=== PATIENT | female | born 1970 | race Caucasian/White ===

== ENCOUNTER 2019-08-06 16:30 | Outpatient (RCR) | payer OTHER, SELFPAY ==
--- NOTE | 2019-05-23 11:05 | PTOPEVAL ---
Thank you for referring this patient to [facility]. Please review, sign, date and return this plan of care [facility]. I agree with and certify that the following plan of care is medically necessary. Referring Physician Date Attending Provider: Syed Da Silva MD *PT Outpatient Evaluation Start: 05/22/19 12:30 Freq: 2-3x/week Status: Active Protocol: Document 05/22/19 12:30 [facility] (Rec: 05/23/19 09:50 [facility] [email or web address]) Therapy Assessment Status Assessment Status Assessment Status Evaluation Outpatient Past Medical History Neurological History Hx Neurological Disorders No Significant History Cardiovascular History Hx Cardiac Arrhythmia Yes: SVT arrhythmia Respiratory History Hx Respiratory Disorders No Significant History Gastrointestinal History Hx Gastrointestinal Disorders No Significant History Genitourinary History Hx Genitourinary Disorders No Significant History Musculoskeletal History Hx Other Musculoskeletal Disorders Yes: L shoulder injury ~5.5 years ago; PT saw for C5 numbness 4 years ago Hematological History Hx Hematological Disorders No Significant History Reproductive History Hx Hysterectomy Yes Pain History History of Any Previous or Ongoing No Significant History Instance of Pain Other History Hx Other Medical Conditions Yes: Vertigo that limited function Evaluation Information Problem Diagnosis L shoulder pain/numbness Onset ~2 months ago Cause No known cause Additional Evaluation Detail Pt noticed winging of the L scapula as well. Subjective Information Patient reports that her Query Text:As Reported By Patient/ shoulder, sternum, and scapula Family pop a fair amount and that it is loud enough to hear. Her neck is bothering her, but mostly just feels like tightness and tension. 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 Home
--- NOTE | 2019-06-21 07:42 | PTOPEVAL ---
Thank you for referring this patient to [facility]. Please review, sign, date and return this plan of care [facility]AYLIN. I agree with and certify that the following plan of care is medically necessary. Referring Physician Date Attending Provider: Syed Da Silva MD *PT Outpatient Reassessment Start: 05/22/19 12:30 Freq: 1-2x/week Status: Active Protocol: Document 06/19/19 17:30 [facility] (Rec: 06/21/19 07:38 [facility] [email or web address]) Pain Assessment Timing of Pain Assessment Timing of Pain Assessment Re-assessment Pain Scale Pain Scale Used Numeric (1 - 10) Self Report Pain Assessment Left Neck Reported Pain Level 1 Pain Description Numbness,Tingling Pain Radiation Left Shoulder Pain Frequency Intermittent Pain Aggravating Factors Prolonged Position Additional Pain Comments Neck is feeling so much better but the shoulder symptoms are intermittent Pain Score Pain Score 1: Self Report Cervical and Lumbar ROM Cervical ROM Cervical Flexion (0-60) 55 Query Text:Active in Degrees Cervical Extension (0-70) 60 Query Text:Active in Degrees Cervical Lateral Flexion Right (0-50) 40 Query Text:Passive in Degrees Cervical Lateral Flexion Left (0-50) 35 Query Text:Active in Degrees Cervical Rotation Right (0-90) 75 Query Text:Active in Degrees Cervical Rotation Left (0-90) 85 Query Text:Active in Degrees Cervical ROM 75% of Normal Cervical ROM Comments ROM has significantly improved . She has a consistent sidebend in the low cervical region that is/was resulting in compensatory motion. This has improved but is still present. Muscle Length Testing Muscle Length Testing Scalene Group Muscle Length (R) Mild Tightness,(L) Mild Query Text: Tightness,(L) Moderate Tightness Levaetor Scapulae Muscle Length (R) Mild Tightness,(L) Mild Tightness,(L) Moderate Tightness Sternocleidomastoid Muscle Length (L) Moderate Tightness Pectoralis Minor Muscle Length (L) Mild Tightness,(L) Moderate Tightness Posture Posture Standing Position Posture Evaluation View Posterior Head/C-Spine Posture Side Bent Left Scapula Posture (L) Protracted,(L) Winged Pelvis Posture Neutral Weight Distribution Balanced Additional Posture Comments
--- NOTE | 2019-08-12 14:49 | PCPTNOTE ---
Patient had to cancel visit last week on 08/06 due to illness; cancelling todays visit due to work obligations.
--- NOTE | 2020-06-01 10:12 | PCPTNOTE ---
Admitting Provider: Attending Provider: Syed Da Silva MD Patient:Mckenna White Date of :1970 Patient's physical therapy chart will be discharged at this time. The goals were partially met. She did not attend visits in the new V# chart therefore discharging this V# chart. Thank you for referring this patient to [facility]. Please review, sign, date and return this discharge summary KAYLIN. I have been updated about the patient's current status and I agree with discharge from the above service at this time. Referring Physician Date
== END 2019-08-06 23:59 | disposition home or self-care (01) ==
LOC: ANHPT 16:30
PROVIDERS: PCP Family Medicine; Visit Provider Orthopaedic Surgery
DX: M75.41 Impingement syndrome of right shoulder (principal)
CPT/HCPCS: 97110; 97140; 97161

== ENCOUNTER 2019-10-18 13:30 | Outpatient (RCR) | payer OTHER, SELFPAY | END 2019-11-19 11:29 | disposition home or self-care (01) | LOC: ANHPT 13:30 | PROVIDERS: PCP Family Medicine; Visit Provider Orthopaedic Surgery | DX: M25.519 Pain in unspecified shoulder (principal) | CPT/HCPCS: 97110; 97140 ==

== ENCOUNTER 2019-11-26 16:56 | Outpatient (CLI) | payer BC, SELFPAY ==
--- NOTE | ~2019-11-26 | MM_ITS ---
EXAMINATION: MM screening [facility] BI w dionne HISTORY: Screening mammogram TECHNIQUE: Craniocaudal and mediolateral oblique 3-D tomosynthesis images were obtained and synthetic 2-D images were generated. CAD analysis was submitted and interpreted. COMPARISON: 11/21/2018, 11/13/2017, 11/21/2016 bilateral digital screening mammogram examinations BREAST PARENCHYMAL COMPOSITION: The breasts are heterogeneously dense, which may obscure small masses . FINDINGS: There is stable fibroglandular asymmetry. There is no evidence of suspicious mass, calcific ation, or architectural distortion to suggest malignancy in either breast. There has been no suspicio us interval change. IMPRESSION: 1. No mammographic evidence of malignancy. 2. Recommend routine screening mammography in one year. BI-RADS Category 2: Benign finding(s). Reviewed, dictated and finalized at location A.
== END 2019-11-26 16:57 | disposition home or self-care (01) ==
LOC: ANHIMG 17:00
PROVIDERS: PCP Family Medicine; Visit Provider Obstetrics & Gynecology
DX: Z12.31 Encounter for screening mammogram for malignant neoplasm of breast (principal)
CPT/HCPCS: 77063; 77067

== ENCOUNTER 2021-03-01 07:33 | Outpatient (CLI) | payer BC, SELFPAY ==
--- NOTE | ~2021-03-01 | MM_ITS ---
EXAMINATION: MM screening [facility] BI w dionne HISTORY: Screening TECHNIQUE: Craniocaudal and mediolateral oblique 3-D tomosynthesis images were obtained and synthetic 2-D images were generated. CAD analysis was submitted and interpreted. COMPARISON: Comparison to multiple prior studies sequentially, with oldest reviewed study dated 01/2015. BREAST PARENCHYMAL COMPOSITION: The breasts are heterogeneously dense, which may obscure small masses . FINDINGS: There is no evidence of suspicious mass, calcification, or architectural distortion to sugg est malignancy in either breast. There has been no suspicious interval change. IMPRESSION: 1. No mammographic evidence of malignancy. 2. Recommend routine screening mammography in one year. BI-RADS Category 1: Negative Reviewed, dictated and finalized at location A.
== END 2021-03-01 07:34 | disposition home or self-care (01) ==
LOC: ANHIMG 07:35
PROVIDERS: PCP Family Medicine; Visit Provider Obstetrics & Gynecology
DX: Z12.31 Encounter for screening mammogram for malignant neoplasm of breast (principal)
CPT/HCPCS: 77063; 77067

== ENCOUNTER 2021-06-03 08:15 | Outpatient (CLI) | payer BC, SELFPAY ==
[2021-06-03 12:26] LABS: SARS-CoV-2 RNA PCR Negative (Negative)
== END 2021-06-03 08:16 | disposition home or self-care (01) ==
LOC: CHSLAB 08:17
PROVIDERS: PCP Family Medicine; Visit Provider Family Medicine
DX: Z20.822 Contact with and (suspected) exposure to COVID-19 (principal)
CPT/HCPCS: C9803; U0003; U0005

== ENCOUNTER 2021-06-10 09:52 | Outpatient (RCR) | payer BC, SELFPAY ==
[2021-06-10 15:26] VITALS: BP 138/84; PULSE 70; RESP 18; TEMP 36.6; O2SAT 100
[2021-06-10] MEDS: diphenhydrAMINE HCl CAP 25 MG CAPSULE PO (15:32)
[2021-06-10] MEDS: FAMOTIDINE 20 MG TABLET PO (15:32)
[2021-06-10] MEDS: ACETAMINOPHEN 325 MG TABLET 650 MG PO (15:32)
[2021-06-10 16:56] VITALS: BP 124/71; PULSE 57; O2SAT 100
== END 2021-06-10 17:00 ==
LOC: AMCINF 09:52
PROVIDERS: PCP Family Medicine; Visit Provider Internal Medicine Hematology & Oncology
DX: U07.1 COVID-19 (principal); I25.10 Atherosclerotic heart disease of native coronary artery without angina pectoris
CPT/HCPCS: A9270; M0247; Q0247

== ENCOUNTER 2021-12-02 08:02 | Outpatient (CLI) | payer BC, SELFPAY ==
--- NOTE | ~2021-12-02 | US_ITS ---
EXAMINATION: US thyroid DATE: 12/02/2021 08:25 INDICATION: endocrine disorder. TECHNIQUE: Multiple ultrasound images of the thyroid were obtained. COMPARISON: None. FINDINGS: The right thyroid lobe measures 4.7 x 2.1 x 1.6 cm. The left thyroid lobe measures 4.6 x 1.8 x 1.7 c m. Wider than tall 5 mm hypoechoic solid nodule with ill-defined margins and without echogenic foci (TI-RADS 4, moderately suspicious , FNA if >=1.5 cm, annual followup is >=1 cm). There is normal echo texture, echogenicity and vascular flow throughout the remainder of the thyroid gland. IMPRESSION: 1. 5 mm TI RADS 4 left thyroid nodule which remains below criteria for either biopsy or required foll ow-up. Reviewed, dictated and finalized at location A. IMPRESSION: 1. 5 mm TI RADS 4 left thyroid nodule which remains below criteria for either b iopsy or required follow-up.
== END 2021-12-02 08:03 | disposition home or self-care (01) ==
LOC: ANHIMG 08:04
PROVIDERS: PCP Family Medicine; Visit Provider Obstetrics & Gynecology
DX: Z86.39 Personal history of other endocrine, nutritional and metabolic disease (principal)
CPT/HCPCS: 76536

== ENCOUNTER → 2021-12-13 15:15 | Outpatient (REF) | payer BC, SELFPAY | LOC: ANHLAB 15:15 | PROVIDERS: PCP Family Medicine; Visit Provider Nurse Practitioner | DX: D49.2 Neoplasm of unspecified behavior of bone, soft tissue, and skin (principal) | CPT/HCPCS: 88305 ==

== ENCOUNTER → 2022-01-17 13:18 | Outpatient (REF) | payer BC, SELFPAY | LOC: ANHLAB 13:18 | PROVIDERS: PCP Family Medicine; Visit Provider Surgery Plastic and Reconstructive Surgery | DX: D49.2 Neoplasm of unspecified behavior of bone, soft tissue, and skin (principal) | CPT/HCPCS: 88305; 88313 ==

== ENCOUNTER 2022-04-13 07:57 | Outpatient (CLI) | payer BC, SELFPAY ==
--- NOTE | ~2022-04-13 | MM_ITS ---
EXAMINATION: MM screening [facility] BI w dionne HISTORY: Screening mammogram TECHNIQUE: Craniocaudal and mediolateral oblique 3-D tomosynthesis images were obtained and synthetic 2-D images were generated. CAD analysis was submitted and interpreted. COMPARISON: 03/01/2021, 11/26/2019, 11/21/2018 bilateral screening mammogram examinations BREAST PARENCHYMAL COMPOSITION: The breasts are heterogeneously dense, which may obscure small masses . FINDINGS: There is no evidence of suspicious mass, calcification, or architectural distortion to sugg est malignancy in either breast. There has been no suspicious interval change. IMPRESSION: 1. No mammographic evidence of malignancy. 2. Recommend routine screening mammography in one year. BI-RADS Category 1: Negative Reviewed, dictated and finalized at location A. 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
== END 2022-04-13 07:58 | disposition home or self-care (01) ==
LOC: ANHIMG 08:02
PROVIDERS: PCP Family Medicine; Visit Provider Obstetrics & Gynecology
DX: Z12.31 Encounter for screening mammogram for malignant neoplasm of breast (principal)
CPT/HCPCS: 77063; 77067

== ENCOUNTER 2023-04-14 07:56 | Outpatient (CLI) | payer BC, SELFPAY ==
--- NOTE | ~2023-04-14 | MM_ITS ---
EXAMINATION: MM screening [facility] BI w dionne HISTORY: Screening TECHNIQUE: Craniocaudal and mediolateral oblique 3-D tomosynthesis images were obtained and synthetic 2-D images were generated. CAD analysis was submitted and interpreted. COMPARISON: Comparison to multiple prior studies sequentially, with oldest reviewed study dated 02/2017. BREAST PARENCHYMAL COMPOSITION: The breasts are heterogeneously dense, which may obscure small masses FINDINGS: There is no evidence of suspicious mass, calcification, or architectural distortion to sugg est malignancy in either breast. There has been no suspicious interval change. IMPRESSION: 1. No mammographic evidence of malignancy. 2. Recommend routine screening mammography in one year. BI-RADS Category 1: Negative Reviewed, dictated and finalized at location A. [employer]
== END 2023-04-14 07:57 | disposition home or self-care (01) ==
LOC: ANHIMG 07:58
PROVIDERS: PCP Family Medicine; Visit Provider Obstetrics & Gynecology
DX: Z12.31 Encounter for screening mammogram for malignant neoplasm of breast (principal)
CPT/HCPCS: 77063; 77067

== ENCOUNTER 2023-07-03 02:07 | Day surgery (SDC) | payer BC, SELFPAY ==
[2023-06-09 12:10] VITALS: BMI 25.0
--- NOTE | 2023-06-30 09:31 | SUR.PREOP ---
Patient called regarding upcoming procedure. Pt updated on arrival date and time. All questions answered
[2023-07-03 06:12] VITALS: BP 129/85; PULSE 98; RESP 18; TEMP 36.5; O2SAT 100; BMI 24.6
[2023-07-03] MEDS: LACTATED RINGERS 1,000 ML 150 ML IV CONT (06:28)
--- NOTE | 2023-07-03 07:25 | PM.HPGS ---
History of Present Illness History of Present Illness Consent: Risks, benefits, and alternatives have been discussed and questions answered. Patient agrees to proceed with procedure. Chief complaint: neoplasm screening Narrative: Mckenna Cadet is a 52 year old female here for first screening colonoscopy Review of Systems Constitutional: Constitutional: Denies headache(s) and Denies weakness Eyes: Eyes: Denies blurry vision ENT: Reports Normal hearing present, Denies headache(s) and Denies neck pain Cardiovascular: Cardiovascular: Denies chest pain and Denies dyspnea Respiratory: Respiratory: Denies dyspnea Gastrointestinal: Gastrointestinal: Reports no additional gastrointestinal complaints Genitourinary: Genitourinary: Denies dysuria Musculoskeletal: Musculoskeletal: Denies neck pain Integumentary/Breasts: Skin/Breast: Denies dry skin Neurologic: Reports Normal hearing present, Denies headache(s) and Denies weakness Psychiatric: Psychiatric: Denies anxiety Endocrine: Endocrine: Denies change in body appearance Hematologic/Lymphatic: Hematologic/Lymphatic: Denies easy bleeding Allergic/Immunologic: Allergic/Immunologic: Denies urticaria PMFSH Past Medical History Medical History (Updated 02/01/23 @ 08:42 by Samuel Ahn MD) Hx of thyroid cyst Overweight Screening mammogram, encounter for Surgical History Surgical History (Updated 02/01/23 @ 08:00 by DEBORAH Sorto) History of robot-assisted laparoscopic hysterectomy (05/24/18) RATLH- fibroids History of tonsillectomy (~1985) [place] teeth removed Family History Family History Father Hypertension Other Acute myocardial infarction paternal uncle x 2 Pancreatic cancer paternal uncle Social History Social History (Updated 02/01/23 @ 08:01 by DEBORAH Sorto) Smoking status: Never smoker Second hand tobacco smoke exposure: No Alcohol intake: never Substance use: never Substance use type: does not use Lack of Transportation: No Lack of Food: Never True Current Housing: I Have Housing Concerned About Future Housing: No Difficulty Paying Gas/Electric Bills: No Difficulty Paying for Meds: No Currently Unemployed: No Education: Master's Degree or Higher Difficulty w/ Childcare or Family Care: No Additional living arrangements comments: Occupation/Education: occupation 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 Gender identity (if verbalized by the patient): Female Sexual Orientation (if Verbalized by the Patient): Straight or Heterosexual Meds Home Medications and Allergies Home Medications Medication Instructions Recorded Confirmed Type metoprolol succinate 25 mg 25 mg PO DAILY 06/10/21 07/03/23 History tablet,extended release 24 hr Allergies Allergy/AdvReac Type Severity Reaction Status Date / Time hydrocodone AdvReac Mild vomiting Verified 07/03/23 06:18 Vital Signs Vital Signs - 24 hr 07/03/23 06:12 Temperature 97.7 F Pulse Rate 98 Respiratory Rate 18 Blood Pressure 129/85 Pulse Oximetry 100 Oxygen Delivery Room Air Exam Const: General: comfortable and no acute distress HENMT: Face/Nose/Sinus: Normal nares present Eyes: General: appearance normal, both eyes and all related structures Neck: Neck: no JVD Resp: Auscultation: clear to auscultation bilaterally Cardio: Rate: regular rate Rhythm: regular rhythm GI: Inspection: non-distended GI Palp: Yes Soft to palpation Skin: General skin exam: normal color Neuro: General: gait normal Speech: normal speech Extrem: General: normal to inspection Psych: Mental Status: mental status grossly normal Assessment and Plan Assessment and plan (1) Colon cancer screening: Code(s): Z12.11 - Encounter for screening for malignant neoplasm of colon Status: Acute
--- NOTE | 2023-07-03 07:26 | WPDANESEPPF ---
Anes - Initial Pre Proc Eval Procedure: Operation Date: 07/03/23 07:30 Proposed Procedures p Screening Colonoscopy - Benson Gore MD Date/Time: 07/03/23 07:26 Surgeon: Benson Gore MD Pre Op Diagnosis: neoplasm screening Patient Data Age: 52 Gender: F Height: 1.65 m Weight: 67.2 kg Last Vital Signs Temp 97.7 F 07/03/23 06:12 Pulse 98 07/03/23 06:12 Resp 18 07/03/23 06:12 BP 129/85 07/03/23 06:12 Pulse Ox 100 07/03/23 06:12 O2 Del Method Room Air 07/03/23 06:12 Allergies Allergy/AdvReac Type Severity Reaction Status Date / Time hydrocodone AdvReac Mild vomiting Verified 07/03/23 06:18 Home Medications Medication Instructions Recorded Confirmed Type metoprolol succinate 25 mg 25 mg PO DAILY 06/10/21 07/03/23 History tablet,extended release 24 hr Patient hx anesthesia problems: none Family hx anesthesia problems: none Results Review: All pre-operative results and documents have been reviewed as part of the pre-operative evaluation. [facility] Past Medical History Medical History (Updated 02/01/23 @ 08:42 by Samuel Ahn MD) Hx of thyroid cyst Overweight Screening mammogram, encounter for Surgical History Surgical History (Updated 02/01/23 @ 08:00 by DEBORAH Sorto) History of robot-assisted laparoscopic hysterectomy (05/24/18) RATLH- fibroids History of tonsillectomy (~1985) [place] teeth removed Family History Family History Father Hypertension Other Acute myocardial infarction paternal uncle x 2 Pancreatic cancer paternal uncle Social History Social History (Updated 02/01/23 @ 08:01 by DEBORAH Sorto) Smoking status: Never smoker Second hand tobacco smoke exposure: No Alcohol intake: never Substance use: never Substance use type: does not use Lack of Transportation: No Lack of Food: Never True Current Housing: I Have Housing Concerned About Future Housing: No Difficulty Paying Gas/Electric Bills: No Difficulty Paying for Meds: No Currently Unemployed: No Education: Master's Degree or Higher Difficulty w/ Childcare or Family Care: No Additional living arrangements comments: Occupation/Education: occupation 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 Gender identity (if verbalized by the patient): Female Sexual Orientation (if Verbalized by the Patient): Straight or Heterosexual Anes - Eval Final PreProcedure Day of Procedure 07/03/23 07:26 Patient weight: normal Heart: regular rate and rhythm Lungs: clear to auscultation Airway: Mallampati scale class II Neurological: alert and oriented Last oral intake: >/= 8 hours ASA classification: II Emergent: no Anesthetic plan: proceed Anesthesia type and monitoring: general GIVS and standard monitoring Results Review: All pre-operative results and documents have been reviewed as part of the pre-operative evaluation. Informed Consent: The patient's anesthetic plan and its attendant risks and benefits were discussed with the patient/family/POA. Questions were solicited and answers provided to the satisfaction of the patient/family/POA.
[2023-07-03 07:43] VITALS: BP 119/59; PULSE 74; RESP 24; O2SAT 99
[2023-07-03 07:53] VITALS: BP 93/70; PULSE 74; RESP 17; O2SAT 99
[2023-07-03 08:03] VITALS: BP 107/69; PULSE 80; RESP 18; O2SAT 99
== END 2023-07-03 08:13 | disposition home or self-care (01) ==
PROVIDERS: PCP Family Medicine; Visit Provider Internal Medicine Gastroenterology
PROC: 0DJD8ZZ Inspection of Lower Intestinal Tract, Via Natural or Artificial Opening Endoscopic (ICD-10-PCS; CPT 45378; principal; 2023-07-03 07:30)
DX: Z12.11 Encounter for screening for malignant neoplasm of colon (principal); Z98.890 Other specified postprocedural states; Z82.49 Family history of ischemic heart disease and other diseases of the circulatory system; Z80.0 Family history of malignant neoplasm of digestive organs
CPT/HCPCS: 45378; J2704; J7120

== ENCOUNTER 2024-04-16 14:54 | Outpatient (CLI) | payer OTHER, SELFPAY ==
--- NOTE | ~2024-04-16 | MM_ITS ---
EXAMINATION: MM screening [facility] BI w dionne HISTORY: Screening mammogram TECHNIQUE: Craniocaudal and mediolateral oblique 3-D tomosynthesis images were obtained and synthetic 2-D images were generated. CAD analysis was submitted and interpreted. COMPARISON: 04/14/2023, 04/13/2022, 03/01/2021 BREAST PARENCHYMAL COMPOSITION:Not Dense. There are scattered areas of fibroglandular density. FINDINGS: No suspicious mass, calcification, or architectural distortion are identified in either natali ast to suggest malignancy. There has been no suspicious interval change. IMPRESSION: No mammographic evidence of malignancy. Recommend routine screening mammography in one year. BI-RADS Category 1: Negative Reviewed, dictated and finalized at location . 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
== END 2024-04-16 14:55 | disposition home or self-care (01) ==
LOC: CHSIMG 14:56
PROVIDERS: PCP Family Medicine; Visit Provider Obstetrics & Gynecology
DX: Z12.31 Encounter for screening mammogram for malignant neoplasm of breast (principal)
CPT/HCPCS: 77063; 77067

== ENCOUNTER 2024-12-11 07:01 | Outpatient (CLI) | payer OTHER, SELFPAY ==
--- OUTSIDE RECORDS SUMMARY | 2024-12-11 07:03 | XMS_ITS | Referral Summary ---
Author Organization [facility] Address [address] [place] [address] Care Team Providers Care International Marketing Intern Name Role Phone Ramon Deluna MD Primary Care Provider [phone] Allergies Active Allergy Reactions Criticality Noted Date Comments Hydrocodone Vomiting Reaction: vomitting, Medications multivitamin tablet tablet take 1 by Oral route once 0 0 04/05/2016 Active metoprolol XL (TOPROL-XL) 25 mg extended release tabletIndications :PVC (premature ventricular contraction) TAKE 1 TABLET(25 MG) BY MOUTH DAILY 90 tablet 2 09/16/2024 Active Active Problems Problem Noted Date Diagnosed Date Ventricular premature complexes 01/31/2017 Intramural leiomyoma of uterus 11/29/2016 Overview (11/29/2016): Stable. Cervical high risk HPV (human papillomavirus) te st positive 11/29/2016 Resolved Problems Problem Noted Date Diagnosed Date Resolved Date Inappropriate sinus tachycardia 03/29/2022 03/30/2023 Mitral valve prolapse 10/19/20132022 Overview (09/08/2016): Mitral valve prolapse Social History Tobacco Use Types Packs/Day Years Used Date Smoking Tobacco: Never Smokeless Tobacco: Never Tobacco Cessation:Counseling Given: Not Answered Alcohol Use Standard Drinks/Week Comments No 0 (1 standard drink = 0.6 oz pur e alcohol) Comments No Sex and Gender Information Value Date Recorded Sex Assigned at Not on file Legal Sex Female 2:13 AM [employer] Gender Identity Not on file Sexual Orientation Not on file Last Filed Vital Signs Vital Sign Reading Time Taken Comments Blood Pressure 112/66 05/13/2024 10: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 Pulse 77 05/13/2024 10: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 Temperature - - Respiratory Rate 12 01/31/2017 7:57 AM CDT Oxygen Saturation 98% 05/13/2024 10: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 Inhaled Oxygen Concentration - - Weight 68.9 kg (152 lb) 05/13/2024 10: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 Height 165.1 cm (5' 5) 05/13/2024 10: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 Body Mass Index 25.29 05/13/2024 10: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 Plan of Treatment Not on file Procedures Procedure Name Priority Date/Time Associated Diagnosis Comments MAMMOGRAPHY Schedule Routine, Read Routine (OP Routine) 11/21/2018 PAP IG, HPV-HR Routine 12/25/2017 3:45 PM CDT Well woman exam from Last 3 Months or Most Recently Relevant to Health Maintenance Results * MAMMOGRAPHY (11/21/2018) Anatomical Region Laterality Modality Breast Mammography Hermelindo Matthew MD [facility] [place]AM[place] PROCEDURES Final Result * (ABNORMAL) Pap IG, HPV-hr (12/25/2017 3:45 PM CDT) Clinical indication Comment(A) [facility] - 01 Comment: EPITHELIAL CELL ABNORMALITY. LOW-GRADE SQUAMOUS INTRAEPITHELIAL LESION (LGSIL); MILD DYSPLASIA IS PRESENT. Specimen adequacy: Comment [facility] - 01 Comment: Satisfactory for evaluation. Endocervical and/or squamous metaplastic cells (endocervical component) are present. Clinician provided ICD10 Comment [facility] 02 Comment:Z01.419 Performed by Comment [facility] 02 Comment:Teresita Guerrero, Cyto technologist (ASCP) Electronically signed by Comment [facility] - 01 Comment:Conor Wilkins, Pathologist . . [facility] - 01 Pathologist provided ICD10 Comment [facility] - 01 Comment:R87.612 Note: Comment [facility] 02 Comment: The Pap smear is a screening test designed to aid in the detection of premalignant and malignant conditions of the uterine cervix. It is not a diagnostic procedure and should not be used as the sole means of detecting cervical cancer. Both false-positive and false-negative reports do occur. Test methodology Comment [facility] 02 Comment: This liquid based ThinPrep(R) pap test was screened with the use of an image guided system. HPV, high-risk Positive(A ) Negative [facility] 03 Comment: This high-risk HPV test detects thirteen high-risk types (16/18/31/33/35/39/45/51/52/56/58/59/68) without differentiation. Endocervical/vagi nal 12/25/2017 3:45 PM CDT 12/26/2017 Narrative [facility] - 12/29/2017 12:23 PM CDT Performed at: - [facility] [id number] Planning Coordinator: Fatemeh Quigley MD, Phone: [phone] Performed at: - [facility] [id number] Planning Coordinator: Magalis Carrington MD, Phone: [phone] Performed at: 03 - [facility] [id number] Planning Coordinator: Magalis Carrington MD, Phone: [phone] Specimen Comment: No. of containers..01 ThinPrep Vial Hermelindo Matthew MD LAB PATHOLOGY ORDERABLES F inal [facility] - 01 [facility] 03 from Last 3 Months or Most Recently Relevant to Health Maintenance Insurance [facility] [id number] Care Teams International Marketing Intern Relationship Specialty Start Date End Date Ramon Deluna MD PCP - General 11/10/15
--- OUTSIDE RECORDS SUMMARY | 2024-12-11 07:04 | XMS_ITS | Clinical Summary ---
Author Organization [facility] Medical Office Building B Address [address] [place] [address] Care Team Providers Care Commercial Artist Name Role Phone Ramon Deluna MD Primary Care Provider [phone] Allergies Active Allergy Reactions Criticality Noted Date [...] prolapse 10/19/20132022 Overview (09/08/2016): Mitral valve prolapse Surgical History Surgery Date Site/Laterality Comments OTHER SURGICAL HISTORY 06/05/1995 - 06/04/1996 : 12 hr labor OTHER SURGICAL HISTORY 06/05/2000 - 06/04/2001 : 8 hr labor OTHER SURGICAL HISTORY 06/05/1985 - 06/04/1986 T & A OTHER SURGICAL HISTORY Hx of small thyroid nodule: followed without change OTHER SURGICAL HISTORY 06/05/1985 - 06/04/1986 Tonsils and adenoids removed. OTHER SURGICAL HISTORY LGSIL pap and positive HR HPV: Colpo HYSTERECTOMY 05/05/2018 - 06/04/2018 for uterine fibroids Medical History Medical History Date Comments Hx Other Medical 1995 ; Outc ome: 37 week 6 lb(s) 12 oz Male Hx Other Medical 2000 ; Outc ome: 38 week 7 lb(s) 8 oz Female Hx Other Medical Hx of small thy roid nodule Hx Other Medical 10/12/2015 LGSIL pap and p ositive HR HPV Abnormal Pap smear of cervix Family History Medical History Relation Name Comments Aortic stenosis Father Coronary artery disease Father Heart failure Father Hypertension Father Hypertension; Coronary artery disease Father's Brother 1 Coronary artery disease; Coronary artery disease Father's Brother 2 Coronary artery disease; Relation Name Status Comments Father (Age 79) Father's Brother 1 Father's Brother 2 Social History Tobacco Use Types Packs/Day Years Used Date Smoking Tobacco: Never Smokeless Tobacco: Never Tobacco Cessation:Counseling Given: Not Answered Alcohol Use Standard Drinks/Week Comments No 0 (1 standard drink = 0.6 oz pur e alcohol) Comments No Sex and Gender Information Value Date Recorded Sex Assigned at Not on file Legal Sex Female 2:13 AM BEAUTY SALES CONSULTANT Gender Identity Not on file Sexual Orientation Not on file Obstetrics History Para Term AB IAB SAB Ectopic Multiple Livin g Live Births 2 2 2 2 2 Date Outcome GA Total Labor Labor/2nd/3rd Weight Sex Type Anes PTL Breanna A1 A5 Name Clin 6 Term 37w 0d 3.062 kg (6 lb 12 oz) M Vag-S pont Living 1 Term 38w 0d 3.402 kg (7 lb 8 oz) F Vag-S pont Living Last Filed Vital Signs Vital Sign Reading Time Taken Comments Blood Pressure 112/66 05/13/2024 10:29 AM BEAUTY SALES CONSULTANT Pulse 77 05/13/2024 10:29 AM BEAUTY SALES CONSULTANT Temperature - - Respiratory Rate 01/31/2017 7:57 AM CDT Oxygen Saturation 98% 05/13/2024 10:29 AM BEAUTY SALES CONSULTANT Inhaled Oxygen Concentration - - Weight 68.9 kg (152 lb) 05/13/2024 10:29 AM BEAUTY SALES CONSULTANT Height 165.1 cm (5' 5) 05/13/2024 10:29 AM BEAUTY SALES CONSULTANT Body Mass Index 25.29 05/13/2024 10:29 AM BEAUTY SALES CONSULTANT Plan of Treatment Health Maintenance Due Date Last Done Comments Colon Cancer Screening-Colonoscopy 1970 Hepatitis C Screening 1970 DTaP/Tdap/Td Vaccine (1 - Tdap) 08/12/1982 Hepatitis B Screening 08/12/1989 Depression Screening 12/25/2018 12/25/2017 Regular Well Visit/Exam 18-64 12/25/2018 12/25/2017, 11/29/2016 Breast Cancer Screening-Mammogram 11/22/2019 11/21/2018, 11/09/2015 Zoster Vaccine (1 of 2) 08/12/2021 Covid-19 Vaccine (3 - season) 2024 06/15/2020, 05/25/2020 Influenza Vaccine (Season Ended) 2025 Cervical Cancer Screening Discontinued 2017, 07/03/2017, 05/16/2016 Pneumococcal vaccine <65 Aged Out No longer eligible based on patient's age to complete this topic Procedures Procedure Name Priority Date/Time Associated Diagnosis Comments MAMMOGRAPHY Schedule Routine, Read Routine (OP Routine) 11/21/2018 PAP IG, HPV-HR Routine 12/25/2017 3:45 PM CDT Well woman exam from Last 3 Months or Most Recently Relevant to Health Maintenance Results * MAMMOGRAPHY (11/21/2018) Anatomical Region Laterality Modality Breast Mammography Hermelindo Matthew MD IMG MAMMO PROCEDURES Final Result * (ABNORMAL) Pap [...] 12:23 PM CDT Performed at: - [facility] [place] [id number] Bench Press Operator: Fatemeh Quigley MD, Phone: [phone] Performed at: - [facility] [id number] Bench Press Operator: Magalis Carrington MD, Phone: [phone] Performed at: 03 - [address] [id number] Bench Press Operator: Magalis Carrington MD, Phone: [phone] Specimen Comment: No. of containers..01 ThinPrep Vial us Hermelindo Matthew MD LAB PATHOLOGY ORDERABLES F inal Result [facility] [place] [place] 03 from Last 3 Months or Most Recently Relevant to Health Maintenance Insurance [facility] [id number] Care Teams Commercial Artist Relationship Specialty Start Date End Date Ramon Deluna MD PCP - General 11/10/15
[2024-12-11 08:01] LABS: Hematocrit 42.0 % (37.0-47.0); Hemoglobin 13.6 g/dL (12.0-15.0); Immature Granulocyte Percent A 0.2 % (0-0.5); Lymphocytes Absolute Auto 1.14 K/mm3 (0.9-3.2); Mean Corpuscular HGB Conc 32.4 g/dl (32-36); Mean Corpuscular Hemoglobin 29.4 pg (26-34); Mean Corpuscular Volume 90.7 fl (80-100); Nucleated Red Blood Cells Absolute Auto 0.000 K/mm3 (0.0-0.012); Nucleated Red Blood Cells Perc 0.0 % (0.0-0.2); Platelet Count Result 218 k/mm3 (150-375); Red Blood Count 4.63 M/mm3 (4.2-5.4); White Blood Count 4.3 K/mm3 (4.5-10.0)
[2024-12-11 09:40] LABS: Cholesterol 192 mg/dL (0-200); HDL Direct 63 mg/dL; Triglycerides 88 mg/dL (<150)
[2024-12-11 10:12] LABS: Thyroid Stimulating Hormone 0.940 uIU/mL (0.465-4.680)
[2024-12-11 17:48] LABS: Hemoglobin A1C 5.7 % (<5.7)
== END 2024-12-11 07:02 | disposition home or self-care (01) ==
LOC: ANHLAB 07:02
PROVIDERS: PCP Family Medicine; Visit Provider Family Medicine
DX: Z00.00 Encounter for general adult medical examination without abnormal findings (principal)
CPT/HCPCS: 36415; 80061; 83036; 84443; 85025

== ENCOUNTER 2025-04-17 14:56 | Outpatient (CLI) | payer OTHER, SELFPAY ==
--- NOTE | ~2025-04-17 | MM_ITS ---
EXAMINATION: MM screening lynn BI w dionne HISTORY: Screening TECHNIQUE: Craniocaudal and mediolateral oblique 3-D tomosynthesis images were obtained and synthetic 2-D images were generated. CAD analysis was submitted and interpreted. COMPARISON: Comparison to multiple prior studies sequentially, with oldest reviewed study dated 11/21/2018. BREAST PARENCHYMAL COMPOSITION: Dense: The breasts are heterogeneously dense, which may obscure small masses FINDINGS: There is no evidence of suspicious mass, calcification, or architectural distortion to suggest malignancy in either breast. There has been no suspicious interval change. IMPRESSION: 1. No mammographic evidence of malignancy. 2. Recommend routine screening mammography in one year. BI-RADS Category 1: Negative Reviewed, dictated and finalized at location B. ING SALES LEADER
--- OUTSIDE RECORDS SUMMARY | 2025-04-17 15:03 | XMS_ITS | Clinical Summary ---
Author Organization [facility] Medical Office Building B Address [address] [place] [address] Care Team Providers Care Metal Turner Name Role Phone Ramon Deluna MD Primary Care Provider [phone] Allergies Active Allergy Reactions Criticality Noted Date Comments Hydrocodone Vomiting Reaction: vomitting, Medications multivitamin tablet tablet take 1 by Oral route once 0 0 04/05/2016 Active metoprolol XL (TOPROL-XL) 25 mg extended release tabletIndications :PVC (premature ventricular contraction) TAKE 1 TABLET(25 MG) BY MOUTH DAILY 90 tablet 2 12/18/2024 Active Active Problems Problem Noted Date Diagnosed [...] on file Legal Sex Female 2:13 AM REVIEW RN Gender Identity Not on file Sexual Orientation [...] Comments Blood Pressure 112/66 05/13/2024 10:29 AM REVIEW RN Pulse 77 05/13/2024 10:29 AM REVIEW RN Temperature - - Respiratory Rate 01/31/2017 7:57 AM CDT Oxygen Saturation 98% 05/13/2024 10:29 AM REVIEW RN Inhaled Oxygen Concentration - - Weight 68.9 kg (152 lb) 05/13/2024 10:29 AM REVIEW RN Height 165.1 cm (5' 5) 05/13/2024 10:29 AM REVIEW RN Body Mass Index 25.29 05/13/2024 10:29 AM REVIEW RN Plan of Treatment Health Maintenance Due Date Last Done Comments Colon Cancer Screening-Colonoscopy 1971 Hepatitis C Screening 1971 DTaP/Tdap/Td Vaccine (1 - Tdap) 08/12/1982 Hepatitis B Screening 08/12/1989 Depression Screening 12/25/2018 12/25/2017 Regular Well Visit/Exam 18-64 12/25/2018 12/25/2017, 11/29/2016 Breast Cancer Screening-Mammogram 11/22/2019 11/21/2018, 11/09/2015 Zoster Vaccine (1 of 2) 08/12/2021 Covid-19 Vaccine (3 - season) 2025 06/15/2020, 05/25/2020 Influenza Vaccine (#1) 2025 Cervical Cancer Screening Discontinued 2017, 07/03/2017, [...] 12/29/2017 12:23 PM CDT Performed at: - [facility] [place] [id number] Men'S Golf Coach: Fatemeh Quigley MD, Phone: [phone] Performed at: - [address] [id number] Men'S Golf Coach: Magalis Carrington MD, Phone: [phone] Performed at: 03 - [address] [id number] Men'S Golf Coach: Magalis Carrington MD, Phone: [phone] Specimen Comment: No. of containers..01 ThinPrep Vial us Hermelindo Matthew MD LAB PATHOLOGY ORDERABLES F inal Result [facility] [place] [facility] [place] 03 from Last 3 Months or Most Recently Relevant to Health Maintenance Insurance [facility] [id number] Care Teams Metal Turner Relationship Specialty Start Date End Date Ramon Deluna MD PCP - General 11/10/15
== END 2025-04-17 14:57 | disposition home or self-care (01) ==
LOC: CHSIMG 14:57
PROVIDERS: PCP Family Medicine; Visit Provider Family Medicine
DX: Z12.31 Encounter for screening mammogram for malignant neoplasm of breast (principal)
CPT/HCPCS: 77063; 77067

== ENCOUNTER 2025-04-30 10:12 | Outpatient (CLI) | payer OTHER, SELFPAY ==
--- NOTE | ~2025-04-30 | US_ITS ---
US thyroid INDICATION: Left thyroid nodule TECHNIQUE: Real-time sonographic images of the thyroid gland were obtained. COMPARISON: No prior studies for comparison. FINDINGS: The right thyroid lobe measures 4.6 x 1.8 x 1.7 cm. The left thyroid lobe measures 4.9 x 1.6 x 1.8 cm. There is normal echotexture and echogenicity throughout the thyroid gland. There is a small 6 mm left thyroid mass which is oval, solid, hypoechoic, wider than tall with ill-defined margins and no echogenic foci, TR 4. Normal vascular flow is present. IMPRESSION: 1. Probable benign 6 mm left thyroid mass, TR 4, which does not meet sonographic criteria for biopsy. Reviewed, dictated and finalized at location I. TING ENTRY SPECIALIST IMPRESSION: 1. Probable benign 6 mm left thyroid mass, TR 4, which does not meet sonograph ic criteria for biopsy.
--- OUTSIDE RECORDS SUMMARY | 2025-04-30 10:56 | XMS_ITS | Clinical Summary ---
Author Organization [facility] Medical Office Building B Address [address] [place] [address] Care Team Providers Care Flue Tile Press Operator Name Role Phone Ramon Deluna MD Primary Care Provider [phone] [phone] Allergies Active Allergy Reactions Criticality Noted Date [...] on file Legal Sex Female 2:13 AM BARYTES GRINDER Gender Identity Not on file Sexual Orientation [...] Comments Blood Pressure 112/66 05/13/2024 10:29 AM BARYTES GRINDER Pulse 77 05/13/2024 10:29 AM BARYTES GRINDER Temperature - - Respiratory Rate 01/31/2017 7:57 AM CDT Oxygen Saturation 98% 05/13/2024 10:29 AM BARYTES GRINDER Inhaled Oxygen Concentration - - Weight 68.9 kg (152 lb) 05/13/2024 10:29 AM BARYTES GRINDER Height 165.1 cm (5' 5) 05/13/2024 10:29 AM BARYTES GRINDER Body Mass Index 25.29 05/13/2024 10:29 AM BARYTES GRINDER Plan of Treatment Health Maintenance Due Date [...] 12/29/2017 12:23 PM CDT Performed at: - Lab[address] [place] [id number] Surgery Scheduler: Fatemeh Quigley MD, Phone: [phone] Performed at: - [address] [id number] Surgery Scheduler: Magalis Carrington MD, Phone: [phone] Performed at: 03 - [address] [id number] Surgery Scheduler: Magalis Carrington MD, Phone: [phone] Specimen Comment: No. of containers..01 ThinPrep Vial us Hermelindo Matthew MD LAB PATHOLOGY ORDERABLES F inal Result [facility] 01 [facility] [place] 02 [facility] [place] 03 from Last 3 Months or Most Recently Relevant to Health Maintenance Insurance [facility] [id number] Care Teams Flue Tile Press Operator Relationship Specialty Start Date End Date Ramon Deluna MD PCP - General 11/10/15
== END 2025-04-30 10:13 | disposition home or self-care (01) ==
LOC: ANHIMG 10:14
PROVIDERS: PCP Family Medicine; Visit Provider Obstetrics & Gynecology
DX: E04.1 Nontoxic single thyroid nodule (principal)
CPT/HCPCS: 76536